=== PATIENT | female | born 1970 | race Two or more races ===

== ENCOUNTER 2024-01-08 05:21 | Day surgery (SDC) | payer OTHER ==
[~2024-01-08 05:21] MED LIST: ARNUITY ELLIPT50 MCG IH; SYMBICORT 16010.2 GM IH
[2024-01-08] MEDS ORDERED: CEFAZOLIN SODIUM 1,000 MG VIAL ONE (06:31)
[2024-01-08] MEDS ORDERED: LIDOCAINE HCL 1%/EPINEPHRINE 20ML VIAL IJ ONE (07:24)
[2024-01-08] MEDS ORDERED: HEPARIN SODIUM,PORCINE 500 UNITS/5 ML VIAL IV ONE (07:24)
[2024-01-08] MEDS ORDERED: BUPIVACAINE HCL 30 ML VIAL IJ SCH (08:00)
[2024-01-08] MEDS ORDERED: LIDOCAINE HCL 1%/EPINEPHRINE 20ML VIAL IJ SCH (08:00)
[2024-01-08] MEDS ORDERED: HEPARIN SODIUM,PORCINE 500 UNITS/5 ML VIAL IV SCH (08:00)
[2024-01-08] MEDS ORDERED: CEFAZOLIN SODIUM 1,000 MG VIAL IV SCH (08:00)
== END 2024-01-08 11:50 | disposition home or self-care (01) ==
LOC: CIR.AMB 05:21
PROVIDERS: ATTEND Colon & Rectal Surgery
DX: C18.0 Malignant neoplasm of cecum (principal)

== ENCOUNTER 2025-03-09 12:00 | Inpatient (IN) | payer OTHER ==
[~2025-03-09] VITALS: Ht 61 cm; Wt 61.7 kg
[2025-03-17] MEDS ORDERED: CEFTRIAXONE SODIUM 2,000 MG VIAL ONE (09:40)
[2025-03-17] MEDS ORDERED: METRONIDAZOLE/SODIUM CHLORIDE 500 MG/100 ML PIGGYBACK IV ONE ×2 (09:41→11:45)
[2025-03-17] MEDS ORDERED: CEFTRIAXONE SODIUM 2,000 MG VIAL IV ONE (11:45)
[2025-03-17] MEDS ORDERED: OxyCODONE HCL 5 MG TABLET (ROXICODONE) PO PRN (14:30)
[2025-03-17] MEDS ORDERED: RINGERS SOLUTION,LACTATED 1,000 ML IV SCH (14:30)
[2025-03-17] MEDS ORDERED: MORPHINE SULFATE 4 MG/ML CARTRIDGE IV PRN (14:30)
[2025-03-17] MEDS ORDERED: ONDANSETRON HCL 2 MG/ML VIAL IV PRN (14:30)
[2025-03-17] MEDS ORDERED: GABAPENTIN 300 MG CAPSULE PO SCH (17:00)
[2025-03-17] MEDS ORDERED: SIMETHICONE 125 MG CAPSULE PO SCH (17:00)
[2025-03-17] MEDS ORDERED: CELECOXIB 200 MG CAPSULE PO SCH (17:00)
[2025-03-17] MEDS ORDERED: POLYETHYLENE GLYCOL 3350 17 GM BLIST.PACK PO SCH (17:00)
[2025-03-17] MEDS ORDERED: METOCLOPRAMIDE HCL 5 MG/ML VIAL IV SCH (17:00)
[2025-03-17] MEDS ORDERED: HYOSCYAMINE SULFATE 0.125 MG TAB.SUBL SL SCH (17:00)
[2025-03-17 17:08] LABS: BASO % 0.1 % (0.1-1.2); EOS # 0.08 (0.04-0.54); EOS % 1.1 % (0.7-7.0); LYMPH # 0.58 (1.18-3.74); MEAN CORPUSCULAR HEMOGLOBIN 29.3 pg (25.6-32.2); MONO # 0.17 (0.24-0.82); MONO % 2.4 % (4.7-12.5); NEUT # 6.35 (1.56-6.13); RED BLOOD COUNT 3.24 M/uL (3.93-5.22); RED CELL DISTRIBUTION WIDTH 14.6 % (11.6-14.4)
[2025-03-17 17:09] LABS: HEMOGLOBIN 9.5 g/dL (11.2-15.7); PLATELET COUNT 92 K/uL (163-369)
[2025-03-17 17:32] LABS: ALBUMIN 2.4 gm/dL (3.4-5.0); BILIRUBIN TOTAL 1.17 mg/dL (0.3-1.2); CALCIUM 7.3 mg/dL (8.5-10.1); CREATININE SERUM 0.84 mg/dL (0.55-1.02); GFR 70.92; GLOBULINA 2.4 G/DL (2.4-3.5); MAGNESIUM 1.5 mg/dL (1.8-2.4); PHOSPHOROUS 3.5 mg/dL (2.5-4.9); POTASSIUM 3.99 mEq/L (3.5-5.1); TOTAL PROTEIN 4.8 gm/dL (6.4-8.2)
[2025-03-17 17:49] LABS: ABG PO2 193.9 mmHg (80-100); ABG pCO2 35.1 mmHg (35-45); BASE EXCESS -5.2 mmol/l; BICARBONATE 19.4 mmol/l (23-25); SaO2 99.6 %; Tco2 20.5 mmol/l
[2025-03-17 17:51] LABS: allen test SATISFACTORY; o2 40 %; puncture site RADIAL RIGHT
[2025-03-17 17:52] LABS: mode NASAL CANNULA
[2025-03-17] MEDS ORDERED: ALBUTEROL SULFATE 3 ML/2.5 MG AMPUL.NEB IH SCH (18:00)
[2025-03-17] MEDS ORDERED: METOCLOPRAMIDE HCL 5 MG/ML VIAL ONE (19:34)
[2025-03-17] MEDS ORDERED: ACETAMINOPHEN 500 MG GEL..CAP PO SCH (20:00)
[2025-03-17] MEDS ORDERED: AMINOCAPROIC ACID 250 MG/ML VIAL IV STA (20:03)
[2025-03-17 20:21] LABS: BASO % 0.1 % (0.1-1.2); EOS # 0.08 (0.04-0.54); EOS % 0.8 % (0.7-7.0); LYMPH # 0.78 (1.18-3.74); LYMPH % 7.4 % (19.3-53.1); MEAN CORPUSCULAR HEMOGLOBIN 29.6 pg (25.6-32.2); MONO # 0.74 (0.24-0.82); NEUT # 8.84 (1.56-6.13); NEUT % 84.1 % (34.0-71.1); RED CELL DISTRIBUTION WIDTH 14.6 % (11.6-14.4)
[2025-03-17 20:43] LABS: HEMOGLOBIN 7.4 g/dL (11.2-15.7); PLATELET COUNT 107 K/uL (163-369)
[2025-03-17] MEDS ORDERED: LEVALBUTEROL HCL 0.63 MG/3 ML SOLUTION IH SCH (20:56)
[2025-03-17] MEDS ORDERED: 0.9 % SODIUM CHLORIDE 1,000 ML IV SCH (21:00)
[2025-03-17] MEDS ORDERED: FAMOTIDINE/PF 20 MG/2 ML VIAL IV PUSH SCH (21:00)
[2025-03-17] MEDS ORDERED: AMINOCAPROIC ACID 250 MG/ML VIAL IV SCH (22:00)
[2025-03-18] MEDS ORDERED: GABAPENTIN 300 MG CAPSULE PO ONE (01:16)
[2025-03-18] MEDS ORDERED: ACETAMINOPHEN 500 MG GEL..CAP PO ONE (01:16)
[2025-03-18] MEDS ORDERED: METOCLOPRAMIDE HCL 5 MG/ML VIAL ONE (01:16)
[2025-03-18] MEDS ORDERED: PANTOPRAZOLE SODIUM 40 MG/VIAL VIAL IV SCH (06:00)
[2025-03-18] MEDS ORDERED: LACTOBACILLUS ACIDOPHILUS 1 CAP CAP PO SCH (09:00)
[2025-03-18] MEDS ORDERED: LACTULOSE 20 G/30 ML BLIST.PACK PO SCH (09:00)
[2025-03-18] MEDS ORDERED: AMINOCAPROIC ACID 250 MG/ML VIAL IV ONE ×2 (09:07→14:41)
[2025-03-18 10:38] LABS: BASO % 0.2 % (0.1-1.2); HEMATOCRIT 28.2 % (34.1-44.9); LYMPH # 1.39 (1.18-3.74); LYMPH % 15.3 % (19.3-53.1); MEAN CORPUSCULAR HEMOGLOBIN 29.8 pg (25.6-32.2); MONO % 8.8 % (4.7-12.5); NEUT # 6.87 (1.56-6.13); NEUT % 75.5 % (34.0-71.1); RED BLOOD COUNT 3.32 M/uL (3.93-5.22); RED CELL DISTRIBUTION WIDTH 14.7 % (11.6-14.4)
[2025-03-18 11:06] LABS: HEMOGLOBIN 9.9 g/dL (11.2-15.7); PLATELET COUNT 64 K/uL (163-369)
[2025-03-18 11:36] LABS: ALBUMIN 2.2 gm/dL (3.4-5.0); CALCIUM 6.7 mg/dL (8.5-10.1); CREATININE SERUM 0.68 mg/dL (0.55-1.02); GFR 90.51; PHOSPHOROUS 2.6 mg/dL (2.5-4.9); POTASSIUM 4.11 mEq/L (3.5-5.1)
[2025-03-18 11:37] LABS: MAGNESIUM 1.4 mg/dL (1.8-2.4)
[2025-03-18] MEDS ORDERED: MAGNESIUM SULFATE IN WATER 50 ML IV NR (12:45)
[2025-03-18 16:54] VITALS: BP 117/73; O2SAT 94
[2025-03-18] MEDS ORDERED: Cyanocobalamin/Mecobalamin 1 TAB.SL SL SCH (17:00)
[2025-03-18] MEDS ORDERED: ENOXAPARIN SODIUM 40 MG/0.4 ML SYRINGE SUBCUTANEO SCH (17:00)
[2025-03-18] MEDS ORDERED: SOD FERRIC GLUC COMPLX/SUCROSE 62.5 MG in 0.9 % SODIUM CHLORIDE 50 ML IV SCH (17:00)
[2025-03-19] VITALS: BP 112/69; O2SAT 97
[2025-03-19 07:54] LABS: BASO % 0.2 % (0.1-1.2); EOS # 0.15 (0.04-0.54); EOS % 1.8 % (0.7-7.0); HEMATOCRIT 33.1 % (34.1-44.9); HEMOGLOBIN 11.2 g/dL (11.2-15.7); LYMPH # 1.53 (1.18-3.74); LYMPH % 18.4 % (19.3-53.1); MEAN CORPUSCULAR HEMOGLOBIN 27.9 pg (25.6-32.2); MONO # 0.74 (0.24-0.82); MONO % 8.9 % (4.7-12.5); NEUT # 5.83 (1.56-6.13); NEUT % 70.3 % (34.0-71.1); RED BLOOD COUNT 4.01 M/uL (3.93-5.22); RED CELL DISTRIBUTION WIDTH 16.1 % (11.6-14.4)
[2025-03-19 08:10] LABS: PLATELET COUNT 63 K/uL (163-369)
[2025-03-19 08:31] LABS: CALCIUM 7.5 mg/dL (8.5-10.1); CREATININE SERUM 0.54 mg/dL (0.55-1.02); GFR 118.09; MAGNESIUM 1.7 mg/dL (1.8-2.4); POTASSIUM 3.68 mEq/L (3.5-5.1)
[2025-03-19 08:49] LABS: PHOSPHOROUS 1.4 mg/dL (2.5-4.9)
[2025-03-19] MEDS ORDERED: ENOXAPARIN SODIUM 40 MG/0.4 ML SYRINGE SUBCUTANEO SCH (09:00)
[2025-03-19 09:25] VITALS: BP 126/81; O2SAT 94
[2025-03-19] MEDS ORDERED: MAGNESIUM SULFATE IN WATER 50 ML IV NR (11:30)
[2025-03-19] MEDS ORDERED: POTASSIUM PHOS,M-BASIC-D-BASIC 15 MM in 0.9 % SODIUM CHLORIDE 250 ML IV NR (13:00)
[2025-03-19] MEDS ORDERED: FUROsemide 20 MG/2 ML VIAL IV SCH (13:00)
[2025-03-19 16:00] VITALS: BP 143/88; O2SAT 97
[2025-03-20 04:01] VITALS: BP 122/77; O2SAT 100
[2025-03-20 08:04] LABS: BASO % 0.1 % (0.1-1.2); EOS # 0.42 (0.04-0.54); EOS % 5.4 % (0.7-7.0); HEMATOCRIT 34.1 % (34.1-44.9); HEMOGLOBIN 11.7 g/dL (11.2-15.7); LYMPH % 21.8 % (19.3-53.1); MEAN CORPUSCULAR HEMOGLOBIN 27.8 pg (25.6-32.2); MONO # 0.67 (0.24-0.82); MONO % 8.6 % (4.7-12.5); NEUT # 4.97 (1.56-6.13); NEUT % 63.8 % (34.0-71.1); RED BLOOD COUNT 4.21 M/uL (3.93-5.22); RED CELL DISTRIBUTION WIDTH 15.9 % (11.6-14.4)
[2025-03-20 08:07] LABS: CREATININE SERUM 0.58 mg/dL (0.55-1.02); GFR 108.75; MAGNESIUM 1.8 mg/dL (1.8-2.4); PHOSPHOROUS 2.2 mg/dL (2.5-4.9); POTASSIUM 3.3 mEq/L (3.5-5.1)
[2025-03-20 08:15] LABS: PLATELET COUNT 104 K/uL (163-369)
[2025-03-20 08:18] VITALS: BP 127/78; O2SAT 95
[2025-03-20 08:59] LABS: MANUAL PLATELET COUNT 122
[2025-03-20] MEDS ORDERED: POTASSIUM PHOS,M-BASIC-D-BASIC 15 MM in 0.9 % SODIUM CHLORIDE 250 ML IV NR (10:00)
[2025-03-20] MEDS ORDERED: INTESTINEX680 M1 PO (15:43)
[2025-03-20] MEDS ORDERED: LEVSIN/SL0.125 MG SL (15:44)
[2025-03-20 16:52] VITALS: BP 129/77; O2SAT 100
== END 2025-03-20 20:00 | disposition home or self-care (01) | DRG 331 ==
LOC: O/R 03-17 06:45 → SURH 03-17 07:00 → SURG 03-17 17:56
PROVIDERS: Internal Medicine Geriatric Medicine; ADMIT Colon & Rectal Surgery; ATTEND Colon & Rectal Surgery
PROC: 07BC4ZX Excision of Pelvis Lymphatic, Percutaneous Endoscopic Approach, Diagnostic (ICD-10-PCS; 2025-03-17)
PROC: 0DTF4ZZ Resection of Right Large Intestine, Percutaneous Endoscopic Approach (ICD-10-PCS; principal; 2025-03-17 07:00)
DX: C18.0 Malignant neoplasm of cecum (principal)

== ENCOUNTER 2025-04-28 11:45 | Inpatient (IN) | payer OTHER ==
[~2025-04-28] VITALS: Ht 157.5 cm; Wt 0.5 kg
[~2025-04-28 11:45] MED LIST changes: +INTESTINEX680 M1 PO; +LEVSIN/SL0.125 MG SL
--- NOTE | 2025-04-28 12:10 | NUR ---
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 ACEPTADA POR . SE CELIA SV Y SE UBICA
[2025-04-28] MEDS ORDERED: PIPERACILLIN/TAZOBACTAM SODIUM 3.375 GM VIAL IV ONE (12:30)
[2025-04-28] MEDS ORDERED: 0.9 % SODIUM CHLORIDE 1,000 ML IV ONE (12:30)
[2025-04-28] MEDS ORDERED: FAMOtidine 10 MG/ML (4ML VIAL) IV ONE (12:30)
[2025-04-28 14:10] LABS: BASO % 0.5 % (0.1-1.2); EOS # 0.00 (0.04-0.54); EOS % 0.0 % (0.7-7.0); LYMPH # 0.42 (1.18-3.74); LYMPH % 4.3 % (19.3-53.1); MEAN PLATELET VOLUME 9.90 fl (9.4-12.4); MONO # 0.48 (0.24-0.82); MONO % 4.9 % (4.7-12.5); NEUT # 8.87 (1.56-6.13); NEUT % 89.9 % (34.0-71.1); RED CELL DISTRIBUTION WIDTH 15.1 % (11.6-14.4)
[2025-04-28 14:27] LABS: INR 1.17
[2025-04-28 14:35] LABS: ALT/SGPT 29.0 U/L (12-78); AST/SGOT 27.0 U/L (15-37); BILIRUBIN TOTAL 0.96 mg/dL (0.3-1.2); BUN CREA RATIO 24.0 (7.0-25.0); CREATININE SERUM 1.99 mg/dL (0.55-1.02); GFR 26.11; GLOBULINA 5.7 G/DL (2.4-3.5); GLUCOSE FASTING 108.0 mg/dL (65-100); OSMOLALITY SERUM 283.0 MOSM/KG (275-295)
--- NOTE | 2025-04-28 14:36 | NUR ---
LIZZETTE SANTANA EDUCA ACERCA DE TX ORDENADO Y REFIERE ENTENDER. SE COLECTAN MUESTRAS DE LABORATORIO MEDIANTE MEDIDAS ASEPTICAS. SE ADMINISTRAN MEDICAMENTOS MIGUEL ORDEN MEDICA
[2025-04-28] MEDS ORDERED: DEXTROSE 5 % AND 0.9 % NACL 1,000 ML IV SCH (14:45)
[2025-04-28] MEDS ORDERED: DIPHENHYDRAMINE HCL 50 MG/ML VIAL 1ML IV ONE (15:00)
[2025-04-28 16:17] LABS: URINE APPEARANCE Clear; URINE BILIRRUBIN Negative (NEGATIVE); URINE BLOOD Negative; URINE COLOR Yellow; URINE GLUCOSE Negative (NEGATIVE); URINE KETONE Negative (NEGATIVE); URINE LEUKOCYTE Negative; URINE NITRATE Negative; URINE PROTEIN 30 (NEGATIVE); URINE UROBILINOGEN 0.2 E.U./dl
[2025-04-28 16:20] LABS: URINE BACTERIA 11.9 uL (0.0-1933); URINE EPITHELIAL CELLS 11.9 uL (0.0-38.8); URINE RBC 2.6 uL (0.0-20.8); URINE WBC 5.0 uL (0.0-23.2)
[2025-04-28 16:35] LABS: URINE CAST 1.17 uL (0.0-1.40)
[2025-04-28 16:40] LABS: BAND MAN 22.0 %; LYMPHOCYTE MAN 1.0 %; MONOCYTE MAN 5.0 %; MYELOCYTE 6.0 %; NEUTROPHILS MAN 66.0 %
[2025-04-28 16:54] VITALS: BP 112/78; O2SAT 97
[2025-04-28] MEDS ORDERED: ENOXAPARIN SODIUM 30 MG/0.3 ML SYRINGE SUBCUTANEO SCH (17:00)
[2025-04-28] MEDS ORDERED: ENOXAPARIN SODIUM 40 MG/0.4 ML SYRINGE SUBCUTANEO SCH (17:00)
[2025-04-28] MEDS ORDERED: PIPERACILLIN/TAZOBACTAM SODIUM 2.25 GM in 0.9 % SODIUM CHLORIDE 50 ML IV SCH (18:00)
[2025-04-28] MEDS ORDERED: FAMOTIDINE/PF 20 MG/2 ML VIAL IV SCH (21:00)
[2025-04-28 23:33] LABS: COVID-19 AG NEGATIVE (NEGATIVE)
[2025-04-29 02:59] LABS: BASO % 0.9 % (0.1-1.2); EOS # 0.02 (0.04-0.54); EOS % 0.2 % (0.7-7.0); LYMPH # 0.57 (1.18-3.74); LYMPH % 7.1 % (19.3-53.1); MEAN PLATELET VOLUME 9.80 fl (9.4-12.4); MONO # 0.67 (0.24-0.82); MONO % 8.3 % (4.7-12.5); NEUT # 6.65 (1.56-6.13); NEUT % 82.5 % (34.0-71.1); RED CELL DISTRIBUTION WIDTH 14.8 % (11.6-14.4)
[2025-04-29 03:20] VITALS: BP 132/78; O2SAT 98
[2025-04-29 03:23] LABS: ALT/SGPT 24.0 U/L (12-78); AST/SGOT 26.0 U/L (15-37); BILIRUBIN TOTAL 0.84 mg/dL (0.3-1.2); BUN CREA RATIO 37.0 (7.0-25.0); CREATININE SERUM 1.26 mg/dL (0.55-1.02); GFR 44.25; GLOBULINA 4.3 G/DL (2.4-3.5); GLUCOSE FASTING 102.0 mg/dL (65-100); OSMOLALITY SERUM 295.0 MOSM/KG (275-295)
[2025-04-29 05:48] VITALS: BP 119/76; O2SAT 95
[2025-04-29 06:23] VITALS: BP 115/75; O2SAT 95
[2025-04-29] MEDS ORDERED: SOD FERRIC GLUC COMPLX/SUCROSE 62.5 MG in 0.9 % SODIUM CHLORIDE 50 ML IV SCH (09:00)
[2025-04-29] MEDS ORDERED: Cyanocobalamin/Mecobalamin 1 TAB.SL SL SCH (09:00)
[2025-04-29 09:09] VITALS: BP 113/73; O2SAT 95
[2025-04-29 16:30] VITALS: BP 125/80; O2SAT 94
[2025-04-29] MEDS ORDERED: MEROPENEM 500 MG/VIAL VIAL IV SCH (17:00)
[2025-04-29] MEDS ORDERED: VANCOMYCIN HCL 1,000 MG VIAL IV SCH (18:00)
[2025-04-29] MEDS ORDERED: MORPHINE SULFATE 4 MG/ML VIAL IV PRN (19:15)
[2025-04-30 01:37] VITALS: BP 134/81; O2SAT 97
[2025-04-30] MEDS ORDERED: FAMOTIDINE/PF 20 MG/2 ML VIAL IV SCH (09:00)
[2025-04-30 13:19] LABS: BASO % 0.1 % (0.1-1.2); EOS # 0.00 (0.04-0.54); EOS % 0.0 % (0.7-7.0); LYMPH # 1.47 (1.18-3.74); LYMPH % 13.1 % (19.3-53.1); MEAN PLATELET VOLUME 9.70 fl (9.4-12.4); MONO # 1.06 (0.24-0.82); MONO % 9.4 % (4.7-12.5); NEUT # 8.08 (1.56-6.13); NEUT % 72.0 % (34.0-71.1); RED CELL DISTRIBUTION WIDTH 15.0 % (11.6-14.4)
[2025-04-30 14:24] LABS: BUN CREA RATIO 41.0 (7.0-25.0); CREATININE SERUM 0.68 mg/dL (0.55-1.02); GFR 90.17; GLUCOSE FASTING 121.0 mg/dL (65-100); OSMOLALITY SERUM 303.0 MOSM/KG (275-295)
[2025-04-30] MEDS ORDERED: DEXTROSE 5 % IN WATER 1,000 ML IV SCH (16:00)
[2025-04-30] MEDS ORDERED: AA 4.25%/CAL/LYTES/DEXT 5% 1,000 ML PERIFERAL SCH (17:00)
[2025-04-30] MEDS ORDERED: AA 2.36%/D6.8W/FAT/E-LYTES NO9 1,440 ML IV SCH (17:00)
[2025-04-30 17:28] VITALS: BP 143/72; O2SAT 95
[2025-04-30] MEDS ORDERED: VANCOMYCIN HCL 1,000 MG VIAL IV SCH (18:00)
[2025-04-30] MEDS ORDERED: MEROPENEM 500 MG/VIAL VIAL IV SCH (18:11)
[2025-04-30] MEDS ORDERED: OCTREOTIDE ACETATE 100MCG/ML (0.1MG/ML) AMPUL IV SCH (19:30)
[2025-04-30] MEDS ORDERED: ANIDULAFUNGIN 100 MG VIAL IV NR (21:00)
[2025-04-30] MEDS ORDERED: MIDAZOLAM HCL 2 MG/2 ML VIAL IV PUSH ONE (22:00)
[2025-04-30] MEDS ORDERED: fentaNYL CITRATE 50 MCG/ML AMPUL IV PUSH ONE (22:00)
[2025-05-01] MEDS ORDERED: MEROPENEM 500 MG/VIAL VIAL IV SCH
[2025-05-01 01:23] VITALS: BP 134/81; O2SAT 98
[2025-05-01 08:16] LABS: BUN CREA RATIO 41.0 (7.0-25.0); CREATININE SERUM 0.41 mg/dL (0.55-1.02); GFR 161.66; GLUCOSE FASTING 103.0 mg/dL (65-100)
[2025-05-01 08:18] LABS: BASO % 0.7 % (0.1-1.2); EOS # 0.07 (0.04-0.54); EOS % 0.5 % (0.7-7.0); LYMPH # 1.79 (1.18-3.74); LYMPH % 13.7 % (19.3-53.1); MEAN PLATELET VOLUME 10.50 fl (9.4-12.4); MONO # 1.08 (0.24-0.82); MONO % 8.3 % (4.7-12.5); NEUT # 8.07 (1.56-6.13); NEUT % 61.8 % (34.0-71.1); RED CELL DISTRIBUTION WIDTH 15.1 % (11.6-14.4)
[2025-05-01 08:53] LABS: OSMOLALITY SERUM 304.0 MOSM/KG (275-295)
[2025-05-01 08:56] VITALS: BP 152/66; O2SAT 96
[2025-05-01] MEDS ORDERED: ENOXAPARIN SODIUM 40 MG/0.4 ML SYRINGE SUBCUTANEO SCH (09:00)
[2025-05-01] MEDS ORDERED: OCTREOTIDE ACETATE IV SCH (09:45)
[2025-05-01] MEDS ORDERED: SODIUM CHLORIDE 0.9% IV SCH (09:45)
[2025-05-01] MEDS ORDERED: POTASSIUM CHLORIDE IN WATER 40 MEQ/100 ML PIGGYBAG IV SCH (12:00)
[2025-05-01 16:00] VITALS: BP 155/78; O2SAT 94
[2025-05-01] MEDS ORDERED: ANIDULAFUNGIN 100 MG VIAL IV SCH (21:00)
[2025-05-01] MEDS ORDERED: POTASSIUM CHLORIDE IN WATER 40 MEQ/100 ML PIGGYBAG IV ONE (22:00)
[2025-05-02] MEDS ORDERED: POTASSIUM PHOS,M-BASIC-D-BASIC 15 MM in 0.9 % SODIUM CHLORIDE 250 ML IV ONE
[2025-05-02 00:30] VITALS: BP 137/84; O2SAT 96
[2025-05-02 07:34] LABS: BASO % 0.2 % (0.1-1.2); EOS # 0.46 (0.04-0.54); EOS % 3.2 % (0.7-7.0); LYMPH # 2.67 (1.18-3.74); LYMPH % 18.6 % (19.3-53.1); MEAN PLATELET VOLUME 10.10 fl (9.4-12.4); MONO # 1.22 (0.24-0.82); MONO % 8.5 % (4.7-12.5); NEUT # 8.47 (1.56-6.13); NEUT % 59.1 % (34.0-71.1); RED CELL DISTRIBUTION WIDTH 15.5 % (11.6-14.4)
[2025-05-02 07:41] LABS: ALT/SGPT 32.0 U/L (12-78); AST/SGOT 61.0 U/L (15-37); BILIRUBIN TOTAL 0.96 mg/dL (0.3-1.2); BUN CREA RATIO 21.0 (7.0-25.0); CREATININE SERUM 0.57 mg/dL (0.55-1.02); GFR 110.53; GLOBULINA 3.9 G/DL (2.4-3.5); GLUCOSE FASTING 155.0 mg/dL (65-100); OSMOLALITY SERUM 293.0 MOSM/KG (275-295)
[2025-05-02 08:16] LABS: BAND MAN 5.0 %; EOSINOPHIL MAN 6.0 %; LYMPHOCYTE MAN 12.0 %; METAMYELOCYTE 2.0 %; MONOCYTE MAN 6.0 %; MYELOCYTE 2.0 %; NEUTROPHILS MAN 53.0 %
[2025-05-02 09:00] VITALS: BP 149/88; O2SAT 97
[2025-05-02] MEDS ORDERED: OCTREOTIDE ACETATE IV SCH (13:00)
[2025-05-02] MEDS ORDERED: SODIUM CHLORIDE 0.9% IV SCH (13:00)
[2025-05-02 16:15] VITALS: BP 158/91; O2SAT 97
[2025-05-03 01:06] VITALS: BP 145/90; O2SAT 95
[2025-05-03 06:46] LABS: BASO % 0.6 % (0.1-1.2); EOS # 0.63 (0.04-0.54); EOS % 4.1 % (0.7-7.0); LYMPH # 2.60 (1.18-3.74); LYMPH % 16.8 % (19.3-53.1); MEAN PLATELET VOLUME 10.90 fl (9.4-12.4); MONO # 1.35 (0.24-0.82); MONO % 8.7 % (4.7-12.5); NEUT # 9.57 (1.56-6.13); NEUT % 61.9 % (34.0-71.1); RED CELL DISTRIBUTION WIDTH 15.6 % (11.6-14.4)
[2025-05-03 07:26] LABS: INR 1.12
[2025-05-03 07:34] LABS: ALT/SGPT 34.0 U/L (12-78); AST/SGOT 53.0 U/L (15-37); BILIRUBIN TOTAL 1.26 mg/dL (0.3-1.2); BILIRUBIN,CONJUGATED 0.56 mg/dL (0.0-0.2); BUN CREA RATIO 22.0 (7.0-25.0); CHOL HDL RATIO 6.8 (0-5.0); CREATININE SERUM 0.37 mg/dL (0.55-1.02); GFR 182.0; GLOBULINA 4.1 G/DL (2.4-3.5); GLUCOSE FASTING 131.0 mg/dL (65-100); OSMOLALITY SERUM 274.0 MOSM/KG (275-295)
[2025-05-03 07:41] LABS: HDL 11.0 mg/dl (40-60); LDL 15.0 mg/dl (0-130); VLDL 48.0 (0-39)
[2025-05-03 08:00] VITALS: BP 145/93; O2SAT 96
[2025-05-03 08:03] LABS: BAND MAN 23.0 %; LYMPHOCYTE MAN 25.0 %; METAMYELOCYTE 1.0 %; MONOCYTE MAN 13.0 %; NEUTROPHILS MAN 35.0 %
[2025-05-03 09:30] LABS: UREA CLEARANCE 63.9 ML/MIN
[2025-05-03] MEDS ORDERED: MAGNESIUM SULFATE IN WATER 50 ML IV NR (10:05)
[2025-05-03] MEDS ORDERED: FLUCONAZOLE IN NACL,ISO-OSM 400 MG/200 ML PIGGYBAG IV NR (12:00)
[2025-05-03 16:00] VITALS: BP 139/89; O2SAT 95
[2025-05-03] MEDS ORDERED: AMPICILLIN SODIUM/SULBACTAM NA 3,000 MG VIAL IV SCH (18:00)
[2025-05-04 01:06] VITALS: BP 131/81; O2SAT 95
[2025-05-04 07:52] LABS: BASO % 0.4 % (0.1-1.2); EOS # 0.42 (0.04-0.54); EOS % 3.0 % (0.7-7.0); LYMPH # 2.02 (1.18-3.74); LYMPH % 14.6 % (19.3-53.1); MEAN PLATELET VOLUME 11.30 fl (9.4-12.4); MONO # 1.44 (0.24-0.82); MONO % 10.4 % (4.7-12.5); NEUT # 9.03 (1.56-6.13); NEUT % 65.2 % (34.0-71.1); RED CELL DISTRIBUTION WIDTH 15.6 % (11.6-14.4)
[2025-05-04 08:38] LABS: BAND MAN 22.0 %; LYMPHOCYTE MAN 10.0 %; NEUTROPHILS MAN 50.0 %
[2025-05-04 08:39] LABS: EOSINOPHIL MAN 3.0 %; METAMYELOCYTE 5.0 %; MONOCYTE MAN 8.0 %
[2025-05-04 08:56] LABS: ALT/SGPT 28.0 U/L (12-78); AST/SGOT 39.0 U/L (15-37); BILIRUBIN TOTAL 0.99 mg/dL (0.3-1.2); BILIRUBIN,CONJUGATED 0.43 mg/dL (0.0-0.2); BUN CREA RATIO 17.0 (7.0-25.0); CREATININE SERUM 0.36 mg/dL (0.55-1.02); GFR 187.84; GLUCOSE FASTING 139.0 mg/dL (65-100); OSMOLALITY SERUM 274.0 MOSM/KG (275-295)
[2025-05-04] MEDS ORDERED: FLUCONAZOLE IN NACL,ISO-OSM 200 MG/100 ML PIGGYBAG IV SCH (09:00)
[2025-05-04 09:55] VITALS: BP 133/84; O2SAT 96
[2025-05-04] MEDS ORDERED: POTASSIUM PHOS,M-BASIC-D-BASIC 3 MM/ML VIAL IV NR (10:00)
[2025-05-04] MEDS ORDERED: OCTREOTIDE ACETATE IV SCH (13:00)
[2025-05-04] MEDS ORDERED: SODIUM CHLORIDE 0.9% IV SCH (13:00)
[2025-05-04] MEDS ORDERED: ANIDULAFUNGIN 100 MG VIAL IV NR (16:00)
[2025-05-04 16:31] VITALS: BP 138/83; O2SAT 95
[2025-05-04] MEDS ORDERED: AMINO ACIDS/PROTEIN HYDROLYS 30 ML BLIST.PACK PO SCH (17:00)
[2025-05-05 01:35] VITALS: BP 137/69; O2SAT 98
[2025-05-05] MEDS ORDERED: DIATRIZOATE MEGLUMINE, SODIUM 30 ML BOTTLE PO ONE (06:00)
[2025-05-05 08:00] VITALS: BP 146/84; O2SAT 95
[2025-05-05] MEDS ORDERED: ANIDULAFUNGIN 100 MG VIAL IV SCH (17:00)
[2025-05-05 17:35] VITALS: BP 148/83; O2SAT 99
[2025-05-05] MEDS ORDERED: MIDAZOLAM HCL 2 MG/2 ML VIAL IV PUSH ONE (18:30)
[2025-05-05] MEDS ORDERED: fentaNYL CITRATE 50 MCG/ML AMPUL IV PUSH ONE (18:30)
[2025-05-06 00:43] VITALS: BP 94/67; O2SAT 100
[2025-05-06 08:00] VITALS: BP 155/80; O2SAT 98
[2025-05-06 12:00] LABS: BASO % 0.4 % (0.1-1.2); EOS # 0.27 (0.04-0.54); EOS % 2.0 % (0.7-7.0); LYMPH # 1.88 (1.18-3.74); LYMPH % 13.9 % (19.3-53.1); MEAN PLATELET VOLUME 11.90 fl (9.4-12.4); MONO # 1.44 (0.24-0.82); MONO % 10.7 % (4.7-12.5); NEUT # 9.53 (1.56-6.13); NEUT % 70.8 % (34.0-71.1); RED CELL DISTRIBUTION WIDTH 16.3 % (11.6-14.4)
[2025-05-06 12:36] LABS: ALT/SGPT 15.0 U/L (12-78); AST/SGOT 25.0 U/L (15-37); BILIRUBIN TOTAL 0.77 mg/dL (0.3-1.2); BUN CREA RATIO 17.0 (7.0-25.0); CREATININE SERUM 0.36 mg/dL (0.55-1.02); GFR 187.84; GLOBULINA 4.6 G/DL (2.4-3.5); GLUCOSE FASTING 123.0 mg/dL (65-100); OSMOLALITY SERUM 277.0 MOSM/KG (275-295)
[2025-05-06 16:49] VITALS: BP 144/85; O2SAT 100
[2025-05-06] MEDS ORDERED: MORPHINE SULFATE 4 MG/ML VIAL IV PRN (19:30)
[2025-05-07] VITALS: BP 125/74; O2SAT 100
[2025-05-07 08:30] VITALS: BP 125/78
[2025-05-07] MEDS ORDERED: MORPHINE SULFATE 4 MG/ML CARTRIDGE IV PRN (09:15)
[2025-05-07] MEDS ORDERED: ORPHENADRINE CITRATE 30 MG/ML AMPUL IM SCH (12:05)
[2025-05-07 16:00] VITALS: BP 118/80; O2SAT 100
[2025-05-08 00:22] VITALS: BP 100/65; O2SAT 100
[2025-05-08 07:42] LABS: BASO % 0.3 % (0.1-1.2); EOS # 0.18 (0.04-0.54); EOS % 1.7 % (0.7-7.0); LYMPH # 1.70 (1.18-3.74); LYMPH % 16.5 % (19.3-53.1); MEAN PLATELET VOLUME 11.40 fl (9.4-12.4); MONO # 1.14 (0.24-0.82); MONO % 11.1 % (4.7-12.5); NEUT # 7.10 (1.56-6.13); NEUT % 68.8 % (34.0-71.1); RED CELL DISTRIBUTION WIDTH 16.9 % (11.6-14.4)
[2025-05-08 08:05] LABS: BUN CREA RATIO 27.0 (7.0-25.0); CREATININE SERUM 0.37 mg/dL (0.55-1.02); GFR 182.0; GLUCOSE FASTING 128.0 mg/dL (65-100); OSMOLALITY SERUM 282.0 MOSM/KG (275-295)
[2025-05-08 09:56] VITALS: BP 130/84; O2SAT 100
[2025-05-08] MEDS ORDERED: CYCLOBENZAPRINE HCL 5 MG TABLET PO SCH (13:57)
[2025-05-08 16:00] VITALS: BP 153/85; O2SAT 100
[2025-05-09 01:33] VITALS: BP 132/76; O2SAT 100
[2025-05-09 08:46] VITALS: BP 169/96; O2SAT 98
[2025-05-09] MEDS ORDERED: FAMOTIDINE/PF 20 MG/10 ML SYRINGE IV SCH (09:00)
[2025-05-09] MEDS ORDERED: SOD FERRIC GLUC COMPLX/SUCROSE 62.5 MG in 0.9 % SODIUM CHLORIDE 50 ML IV SCH (13:11)
[2025-05-09] MEDS ORDERED: Cyanocobalamin/Mecobalamin 1 TAB.SL SL SCH (13:11)
[2025-05-09] MEDS ORDERED: MULTIVIT INFUSN,ADULT 4,VIT K 10 ML VIAL IV SCH (13:11)
[2025-05-09] MEDS ORDERED: SODIUM CL 0.9% 50 ML IV.SOLN IV ONE (13:48)
[2025-05-09 14:06] LABS: BASO % 0.5 % (0.1-1.2); EOS # 0.18 (0.04-0.54); EOS % 1.4 % (0.7-7.0); LYMPH # 1.46 (1.18-3.74); LYMPH % 11.6 % (19.3-53.1); MEAN PLATELET VOLUME 10.60 fl (9.4-12.4); MONO # 1.28 (0.24-0.82); MONO % 10.2 % (4.7-12.5); NEUT # 9.47 (1.56-6.13); NEUT % 75.2 % (34.0-71.1); RED CELL DISTRIBUTION WIDTH 16.7 % (11.6-14.4)
[2025-05-09 16:00] VITALS: BP 135/81; O2SAT 100
[2025-05-09] MEDS ORDERED: FAMOTIDINE/PF 20 MG/2 ML VIAL IV PUSH SCH (21:00)
[2025-05-10] VITALS: BP 145/86; O2SAT 97
[2025-05-10] MEDS ORDERED: MORPHINE SULFATE 4 MG/ML CARTRIDGE IV PRN (01:15)
[2025-05-10 06:50] LABS: BASO % 0.3 % (0.1-1.2); EOS # 0.19 (0.04-0.54); EOS % 2.0 % (0.7-7.0); LYMPH # 1.29 (1.18-3.74); LYMPH % 13.3 % (19.3-53.1); MEAN PLATELET VOLUME 10.50 fl (9.4-12.4); MONO # 1.25 (0.24-0.82); NEUT # 6.86 (1.56-6.13); NEUT % 71.0 % (34.0-71.1); RED CELL DISTRIBUTION WIDTH 16.3 % (11.6-14.4)
[2025-05-10 07:09] LABS: MONO % 12.9 % (4.7-12.5)
[2025-05-10 07:29] LABS: ALT/SGPT 9.0 U/L (12-78); AST/SGOT 22.0 U/L (15-37); BILIRUBIN TOTAL 0.83 mg/dL (0.3-1.2); BILIRUBIN,CONJUGATED 0.35 mg/dL (0.0-0.2); BUN CREA RATIO 18.0 (7.0-25.0); CHOL HDL RATIO 5.6 (0-5.0); CREATININE SERUM 0.38 mg/dL (0.55-1.02); GFR 176.48; GLOBULINA 4.7 G/DL (2.4-3.5); GLUCOSE FASTING 128.0 mg/dL (65-100); HDL 16.0 mg/dl (40-60); OSMOLALITY SERUM 281.0 MOSM/KG (275-295)
[2025-05-10 07:33] LABS: LDL 31.0 mg/dl (0-130); VLDL 42.0 (0-39)
[2025-05-10 08:00] VITALS: BP 160/90; O2SAT 100
[2025-05-10 12:38] LABS: INR 1.14
[2025-05-10 16:00] VITALS: BP 154/90; O2SAT 97
[2025-05-11 00:30] VITALS: BP 161/100; O2SAT 98
[2025-05-11] MEDS ORDERED: hydrALAZINE HCL 20 MG VIAL IV PRN (06:00)
[2025-05-11 08:00] VITALS: BP 136/86; O2SAT 98
[2025-05-11] MEDS ORDERED: CELECOXIB 200 MG CAPSULE PO STA (13:04)
[2025-05-11 16:00] VITALS: BP 116/91; O2SAT 96
[2025-05-11] MEDS ORDERED: CELECOXIB 200 MG CAPSULE PO SCH (21:00)
[2025-05-12 01:03] VITALS: BP 138/79; O2SAT 98
[2025-05-12 08:00] VITALS: BP 144/79; O2SAT 99
[2025-05-12] MEDS ORDERED: METHYLPREDNISOLONE SOD SUCC 40 MG VIAL IV NR (10:30)
[2025-05-12] MEDS ORDERED: DIPHENHYDRAMINE HCL 50 MG/ML VIAL 1ML IV NR (10:30)
[2025-05-12 13:44] LABS: BASO % 0.4 % (0.1-1.2); EOS # 0.17 (0.04-0.54); EOS % 1.5 % (0.7-7.0); LYMPH # 0.67 (1.18-3.74); LYMPH % 6.1 % (19.3-53.1); MEAN PLATELET VOLUME 10.60 fl (9.4-12.4); MONO # 0.75 (0.24-0.82); MONO % 6.8 % (4.7-12.5); NEUT # 9.35 (1.56-6.13); NEUT % 84.6 % (34.0-71.1); RED CELL DISTRIBUTION WIDTH 17.1 % (11.6-14.4)
[2025-05-12 14:11] LABS: BUN CREA RATIO 24.0 (7.0-25.0); CREATININE SERUM 0.42 mg/dL (0.55-1.02); GFR 157.23; GLUCOSE FASTING 114.0 mg/dL (65-100); OSMOLALITY SERUM 277.0 MOSM/KG (275-295)
[2025-05-12 16:00] VITALS: BP 153/90; O2SAT 96
[2025-05-13 01:55] VITALS: BP 143/75; O2SAT 98
[2025-05-13 08:00] VITALS: BP 155/87; O2SAT 99
[2025-05-13 16:00] VITALS: BP 150/89; O2SAT 97
[2025-05-14 02:21] VITALS: BP 140/83; O2SAT 96
[2025-05-14 08:00] VITALS: BP 109/73; O2SAT 96
[2025-05-14 09:19] LABS: BASO % 0.3 % (0.1-1.2); EOS # 0.15 (0.04-0.54); EOS % 1.3 % (0.7-7.0); LYMPH # 1.54 (1.18-3.74); LYMPH % 13.2 % (19.3-53.1); MEAN PLATELET VOLUME 10.60 fl (9.4-12.4); MONO # 1.15 (0.24-0.82); MONO % 9.8 % (4.7-12.5); NEUT # 8.75 (1.56-6.13); NEUT % 74.7 % (34.0-71.1); RED CELL DISTRIBUTION WIDTH 17.3 % (11.6-14.4)
[2025-05-14 09:45] LABS: BUN CREA RATIO 34.0 (7.0-25.0); CREATININE SERUM 0.44 mg/dL (0.55-1.02); GFR 149.01; GLUCOSE FASTING 103.0 mg/dL (65-100); OSMOLALITY SERUM 280.0 MOSM/KG (275-295)
[2025-05-14 16:00] VITALS: BP 123/80; O2SAT 97
[2025-05-14] MEDS ORDERED: MIDAZOLAM HCL 2 MG/2 ML VIAL IV PUSH ONE (16:30)
[2025-05-14] MEDS ORDERED: fentaNYL CITRATE 50 MCG/ML AMPUL IV PUSH ONE ×2 (16:30→21:30)
[2025-05-15 01:36] VITALS: BP 127/78; O2SAT 100
[2025-05-15 08:00] VITALS: BP 150/91; O2SAT 99
[2025-05-15 16:00] VITALS: BP 148/80; O2SAT 99
[2025-05-15] MEDS ORDERED: GABAPENTIN 100 MG CAPSULE PO SCH (21:00)
[2025-05-16 01:28] VITALS: BP 135/79; O2SAT 100
[2025-05-16 08:00] VITALS: BP 151/92; O2SAT 100
[2025-05-16 16:00] VITALS: BP 149/90; O2SAT 100
[2025-05-17 01:12] VITALS: BP 167/106; O2SAT 100
[2025-05-17 08:14] LABS: BASO % 0.3 % (0.1-1.2); EOS # 0.40 (0.04-0.54); EOS % 4.3 % (0.7-7.0); LYMPH # 1.03 (1.18-3.74); LYMPH % 11.0 % (19.3-53.1); MEAN PLATELET VOLUME 10.40 fl (9.4-12.4); MONO # 1.23 (0.24-0.82); NEUT # 6.61 (1.56-6.13); NEUT % 70.3 % (34.0-71.1); RED CELL DISTRIBUTION WIDTH 17.5 % (11.6-14.4)
[2025-05-17 08:30] LABS: MONO % 13.1 % (4.7-12.5)
[2025-05-17 08:49] LABS: INR 1.08
[2025-05-17 09:27] LABS: GLUCOSE FASTING 164.0 mg/dL (65-100)
[2025-05-17 09:28] LABS: BUN CREA RATIO 33.0 (7.0-25.0); CREATININE SERUM 0.33 mg/dL (0.55-1.02); GFR 207.68; OSMOLALITY SERUM 282.0 MOSM/KG (275-295)
[2025-05-17 09:29] LABS: BILIRUBIN TOTAL 0.65 mg/dL (0.3-1.2); BILIRUBIN,CONJUGATED 0.35 mg/dL (0.0-0.2); CHOL HDL RATIO 5.3 (0-5.0); GLOBULINA 4.5 G/DL (2.4-3.5); HDL 22.0 mg/dl (40-60); LDL 52.0 mg/dl (0-130); VLDL 42.0 (0-39)
[2025-05-17 09:30] LABS: ALT/SGPT 11.0 U/L (12-78); AST/SGOT 22.0 U/L (15-37)
[2025-05-17 09:49] VITALS: BP 137/87; O2SAT 98
[2025-05-17] MEDS ORDERED: MAGNESIUM SULFATE IN WATER 50 ML IV NR (11:15)
[2025-05-17] MEDS ORDERED: POTASSIUM CHLORIDE 20MEQ/100ML H2O PB IV NR (13:00)
[2025-05-17 16:00] VITALS: BP 146/92; O2SAT 99
[2025-05-18 02:08] VITALS: BP 134/78; O2SAT 100
[2025-05-18 08:00] VITALS: BP 145/93; O2SAT 98
[2025-05-18 17:08] VITALS: BP 165/89; O2SAT 98
[2025-05-19 01:01] VITALS: BP 129/73; O2SAT 100
[2025-05-19 10:39] VITALS: BP 147/86; O2SAT 99
[2025-05-19] MEDS ORDERED: METHYLPREDNISOLONE SOD SUCC 40 MG VIAL IV NR (11:00)
[2025-05-19] MEDS ORDERED: DIPHENHYDRAMINE HCL 50 MG/ML VIAL 1ML IV NR (11:00)
[2025-05-19] MEDS ORDERED: DIATRIZOATE MEGLUMINE, SODIUM 30 ML BOTTLE PO NR (11:30)
[2025-05-19 18:32] VITALS: BP 145/85; O2SAT 100
[2025-05-20 02:26] VITALS: BP 138/73; O2SAT 98
[2025-05-20 08:00] VITALS: BP 150/90; O2SAT 98
[2025-05-20 08:46] LABS: BASO % 0.2 % (0.1-1.2); EOS # 0.01 (0.04-0.54); EOS % 0.1 % (0.7-7.0); LYMPH # 1.15 (1.18-3.74); LYMPH % 12.0 % (19.3-53.1); MEAN PLATELET VOLUME 10.60 fl (9.4-12.4); MONO # 1.23 (0.24-0.82); NEUT # 7.03 (1.56-6.13); NEUT % 73.5 % (34.0-71.1); RED CELL DISTRIBUTION WIDTH 17.6 % (11.6-14.4)
[2025-05-20 08:50] LABS: MONO % 12.9 % (4.7-12.5)
[2025-05-20 09:29] LABS: ALT/SGPT 16.0 U/L (12-78); AST/SGOT 29.0 U/L (15-37); BILIRUBIN TOTAL 0.77 mg/dL (0.3-1.2); BUN CREA RATIO 25.0 (7.0-25.0); CREATININE SERUM 0.52 mg/dL (0.55-1.02); GFR 122.88; GLOBULINA 5.7 G/DL (2.4-3.5); GLUCOSE FASTING 144.0 mg/dL (65-100); OSMOLALITY SERUM 278.0 MOSM/KG (275-295)
[2025-05-20 16:00] VITALS: BP 141/88; O2SAT 94
[2025-05-21 01:07] VITALS: BP 158/104; O2SAT 98
[2025-05-21 01:55] VITALS: BP 130/74; O2SAT 97
[2025-05-21] MEDS ORDERED: DIPHENHYDRAMINE HCL 50 MG/ML VIAL 1ML IV STA (01:58)
[2025-05-21 08:00] VITALS: BP 138/92; O2SAT 99
[2025-05-21 17:15] VITALS: BP 147/92; O2SAT 99
[2025-05-22 01:41] VITALS: BP 143/81; O2SAT 96
[2025-05-22 08:00] VITALS: BP 150/99; O2SAT 97
[2025-05-22 16:00] VITALS: BP 144/85; O2SAT 98
[2025-05-23 01:37] VITALS: BP 132/83; O2SAT 99
[2025-05-23 08:00] VITALS: BP 135/84; O2SAT 99
[2025-05-23 16:00] VITALS: BP 150/92; O2SAT 99
[2025-05-24 01:05] VITALS: BP 133/87; O2SAT 96
[2025-05-24 07:25] LABS: ALT/SGPT 12.0 U/L (12-78); AST/SGOT 23.0 U/L (15-37); BILIRUBIN TOTAL 0.85 mg/dL (0.3-1.2); BUN CREA RATIO 19.0 (7.0-25.0); CREATININE SERUM 0.52 mg/dL (0.55-1.02); GFR 122.88; GLOBULINA 4.5 G/DL (2.4-3.5); GLUCOSE FASTING 123.0 mg/dL (65-100); OSMOLALITY SERUM 278.0 MOSM/KG (275-295)
[2025-05-24 07:46] LABS: BASO % 0.4 % (0.1-1.2); EOS # 1.02 (0.04-0.54); EOS % 8.0 % (0.7-7.0); LYMPH # 1.68 (1.18-3.74); LYMPH % 13.1 % (19.3-53.1); MEAN PLATELET VOLUME 10.00 fl (9.4-12.4); MONO # 1.61 (0.24-0.82); NEUT # 8.21 (1.56-6.13); NEUT % 64.1 % (34.0-71.1); RED CELL DISTRIBUTION WIDTH 17.6 % (11.6-14.4)
[2025-05-24 08:14] VITALS: BP 149/93; O2SAT 96
[2025-05-24 09:14] LABS: MONO % 12.6 % (4.7-12.5)
[2025-05-24 09:41] LABS: ERYTHROCYTE SEDIMENTATION RATE 73 mm/hr (0-30)
[2025-05-24 16:30] VITALS: BP 124/84; O2SAT 99
[2025-05-25 00:45] VITALS: BP 149/88; O2SAT 98
[2025-05-25] MEDS ORDERED: DIPHENHYDRAMINE HCL 50 MG/ML VIAL 1ML IV NR (08:00)
[2025-05-25] MEDS ORDERED: METHYLPREDNISOLONE SOD SUCC 40 MG VIAL IV NR (08:00)
[2025-05-25] MEDS ORDERED: DIATRIZOATE MEGLUMINE, SODIUM 30 ML BOTTLE PO NR (08:00)
[2025-05-25 08:48] VITALS: BP 129/84; O2SAT 100
[2025-05-25 09:35] LABS: BASO % 0.4 % (0.1-1.2); EOS # 0.85 (0.04-0.54); EOS % 5.8 % (0.7-7.0); LYMPH # 1.29 (1.18-3.74); LYMPH % 8.9 % (19.3-53.1); MEAN PLATELET VOLUME 9.70 fl (9.4-12.4); MONO # 1.56 (0.24-0.82); MONO % 10.7 % (4.7-12.5); NEUT # 10.60 (1.56-6.13); NEUT % 73.0 % (34.0-71.1); RED CELL DISTRIBUTION WIDTH 17.7 % (11.6-14.4)
[2025-05-25 17:06] VITALS: BP 135/84; O2SAT 97
[2025-05-26 01:18] VITALS: BP 138/87; O2SAT 99
[2025-05-26 08:00] VITALS: BP 124/82; O2SAT 100
[2025-05-26 18:10] VITALS: BP 155/103; O2SAT 99
[2025-05-27 02:30] VITALS: BP 156/90; O2SAT 99
[2025-05-27 08:00] VITALS: BP 145/79; O2SAT 98
[2025-05-27] MEDS ORDERED: SODIUM CL 0.9% 250 ML IV.SOLN ONE (08:28)
[2025-05-27 12:36] LABS: BASO % 0.4 % (0.1-1.2); EOS # 0.27 (0.04-0.54); EOS % 2.0 % (0.7-7.0); LYMPH # 1.31 (1.18-3.74); LYMPH % 9.9 % (19.3-53.1); MEAN PLATELET VOLUME 9.80 fl (9.4-12.4); MONO # 1.34 (0.24-0.82); MONO % 10.1 % (4.7-12.5); NEUT # 10.20 (1.56-6.13); NEUT % 76.8 % (34.0-71.1); RED CELL DISTRIBUTION WIDTH 17.3 % (11.6-14.4)
[2025-05-27 13:32] LABS: BUN CREA RATIO 24.0 (7.0-25.0); CREATININE SERUM 0.58 mg/dL (0.55-1.02); GFR 108.33; GLUCOSE FASTING 134.0 mg/dL (65-100); OSMOLALITY SERUM 276.0 MOSM/KG (275-295)
[2025-05-27 16:00] VITALS: BP 154/97; O2SAT 97
[2025-05-27] MEDS ORDERED: ANIDULAFUNGIN 100 MG VIAL IV SCH (17:00)
[2025-05-28 02:09] VITALS: BP 154/97; O2SAT 98
[2025-05-28 08:00] VITALS: BP 134/90; O2SAT 98
[2025-05-28] MEDS ORDERED: IRBESARTAN 75 MG TABLET PO SCH (10:01)
[2025-05-28] MEDS ORDERED: IRBESARTAN 75 MG TABLET PO NR (12:00)
[2025-05-28 17:58] VITALS: BP 118/77; O2SAT 98
[2025-05-29 01:27] VITALS: BP 140/79; O2SAT 97
[2025-05-29 08:00] VITALS: BP 124/92; O2SAT 97
== END 2025-05-29 16:42 | disposition home or self-care (01) | DRG 871 ==
LOC: ER 11:45 → SEC-K 14:43 → SURH 14:43 → SEC-K 22:11 → SURH 04-29 05:37
PROVIDERS: General Practice; Internal Medicine; Internal Medicine Geriatric Medicine; ADMIT Colon & Rectal Surgery; ATTEND Colon & Rectal Surgery
PROC: 0H97XZZ Drainage of Abdomen Skin, External Approach (ICD-10-PCS; principal; 2025-04-30)
PROC: B24BYZZ Ultrasonography of Heart with Aorta using Other Contrast (ICD-10-PCS; 2025-04-30)
PROC: 02HV33Z Insertion of Infusion Device into Superior Vena Cava, Percutaneous Approach (ICD-10-PCS; 2025-05-01)
PROC: 30243N1 Transfusion of Nonautologous Red Blood Cells into Central Vein, Percutaneous Approach (ICD-10-PCS; 2025-05-08)
PROC: BW21YZZ Computerized Tomography (CT Scan) of Abdomen and Pelvis using Other Contrast (ICD-10-PCS; 2025-05-12)
PROC: 0H97XZZ Drainage of Abdomen Skin, External Approach (ICD-10-PCS; 2025-05-14)
PROC: BW21YZZ Computerized Tomography (CT Scan) of Abdomen and Pelvis using Other Contrast (ICD-10-PCS; 2025-05-19)
PROC: BW21YZZ Computerized Tomography (CT Scan) of Abdomen and Pelvis using Other Contrast (ICD-10-PCS; 2025-05-25)
DX: A41.9 Sepsis, unspecified organism (principal); K65.1 Peritoneal abscess; N17.9 Acute kidney failure, unspecified; E87.1 Hypo-osmolality and hyponatremia; J98.11 Atelectasis; J90 Pleural effusion, not elsewhere classified; Z85.038 Personal history of other malignant neoplasm of large intestine; B96.20 Unspecified Escherichia coli [E. coli] as the cause of diseases classified elsewhere; D72.829 Elevated white blood cell count, unspecified; D64.9 Anemia, unspecified

== ENCOUNTER 2025-06-03 23:11 | Inpatient (IN) | payer OTHER ==
[~2025-06-03] VITALS: Ht 162.6 cm; Wt 49.9 kg
--- NOTE | 2025-06-03 23:15 | NUR ---
PTE ALERTA Y ORIENTADA X3. PTE RECIBIDA EN AMBULANCIA. REFIERE DOLOR ABDOMINAL DE DOS CAGLE.PTE DE DR. VILLEGAS.
[2025-06-03] MEDS ORDERED: ONDANSETRON HCL 4 MG in 0.9 % SODIUM CHLORIDE 50 ML IV ONE (23:45)
[2025-06-03] MEDS ORDERED: MORPHINE SULFATE 4 MG/ML CARTRIDGE IV PRN (23:45)
[2025-06-03] MEDS ORDERED: ONDANSETRON HCL 4 MG in 0.9 % SODIUM CHLORIDE 50 ML IV PRN (23:45)
[2025-06-03] MEDS ORDERED: ACETAMINOPHEN 500 MG GEL..CAP PO PRN (23:45)
[2025-06-03] MEDS ORDERED: RINGERS SOLUTION,LACTATED 1,000 ML IV SCH (23:45)
[2025-06-03] MEDS ORDERED: FAMOTIDINE/PF 20 MG in 0.9 % SODIUM CHLORIDE 8 ML IV PUSH SCH (23:56)
[2025-06-04] MEDS ORDERED: PIPERACILLIN/TAZOBACTAM SODIUM 3.375 GM in DEXTROSE 5 % IN WATER 100 ML IV SCH
[2025-06-04] MEDS ORDERED: 0.9 % SODIUM CHLORIDE 1,000 ML IV SCH (00:15)
[2025-06-04] MEDS ORDERED: FAMOTIDINE/PF 20 MG/2 ML VIAL ONE (00:49)
[2025-06-04] MEDS ORDERED: ONDANSETRON HCL 2 MG/ML VIAL ONE (00:49)
[2025-06-04 00:59] LABS: ERYTHROCYTE SEDIMENTATION RATE 126 mm/hr (0-30)
[2025-06-04] MEDS ORDERED: ACETAMINOPHEN 500 MG GEL..CAP PO ONE (01:13)
[2025-06-04 01:20] LABS: COVID-19 AG NEGATIVE (NEGATIVE); INR 1.13
[2025-06-04 01:40] LABS: ALT/SGPT 40.0 U/L (12-78); BILIRUBIN TOTAL 2.78 mg/dL (0.3-1.2); GLOBULINA 3.8 G/DL (2.4-3.5); GLUCOSE FASTING 80.0 mg/dL (65-100); OSMOLALITY SERUM 267.0 MOSM/KG (275-295)
[2025-06-04 01:42] LABS: AST/SGOT 60.0 U/L (15-37); BUN CREA RATIO 38.0 (7.0-25.0); CREATININE SERUM 0.29 mg/dL (0.55-1.02); GFR 241.07
[2025-06-04 01:51] LABS: BASO % 0.1 % (0.1-1.2); EOS # 0.03 (0.04-0.54); EOS % 0.2 % (0.7-7.0); LYMPH # 1.18 (1.18-3.74); LYMPH % 7.9 % (19.3-53.1); MEAN PLATELET VOLUME 10.10 fl (9.4-12.4); MONO # 1.52 (0.24-0.82); MONO % 10.1 % (4.7-12.5); NEUT # 12.19 (1.56-6.13); NEUT % 81.2 % (34.0-71.1); RED CELL DISTRIBUTION WIDTH 16.2 % (11.6-14.4)
[2025-06-04 02:58] VITALS: BP 105/69; O2SAT 96
[2025-06-04 03:36] LABS: URINE APPEARANCE Clear; URINE BILIRRUBIN Small (NEGATIVE); URINE BLOOD Negative; URINE COLOR Dark Yellow; URINE GLUCOSE Negative (NEGATIVE); URINE LEUKOCYTE Trace; URINE NITRATE Negative; URINE PROTEIN 30 (NEGATIVE); URINE UROBILINOGEN 0.2 E.U./dl
[2025-06-04 03:40] LABS: URINE BACTERIA 10.7 uL (0.0-1933); URINE EPITHELIAL CELLS 37.8 uL (0.0-38.8); URINE RBC 20.9 uL (0.0-20.8); URINE WBC 10.6 uL (0.0-23.2)
[2025-06-04 04:38] LABS: URINE CAST 0.73 uL (0.0-1.40); URINE KETONE 40 (NEGATIVE)
[2025-06-04 04:39] LABS: TYPE CELLS SQUAMOUS
[2025-06-04 07:10] LABS: ALT/SGPT 38.0 U/L (12-78); AST/SGOT 54.0 U/L (15-37); BILIRUBIN TOTAL 2.73 mg/dL (0.3-1.2); BILIRUBIN,CONJUGATED 1.68 mg/dL (0.0-0.2)
[2025-06-04 08:19] VITALS: BP 132/83; O2SAT 97
[2025-06-04] MEDS ORDERED: ENOXAPARIN SODIUM 40 MG/0.4 ML SYRINGE SUBCUTANEO SCH (09:00)
[2025-06-04] MEDS ORDERED: DEXTROSE 5 %-0.45 % SOD CHLORD 1,000 ML IV SCH (14:30)
[2025-06-04] MEDS ORDERED: SOD FERRIC GLUC COMPLX/SUCROSE 62.5 MG in 0.9 % SODIUM CHLORIDE 50 ML IV NR (15:30)
[2025-06-04] MEDS ORDERED: Cyanocobalamin/Mecobalamin 1 TAB.SL SL NR (15:30)
[2025-06-04] MEDS ORDERED: AMINO ACIDS/PROTEIN HYDROLYS 30 ML BLIST.PACK PO SCH (17:00)
[2025-06-04 17:41] VITALS: BP 137/78; O2SAT 97
[2025-06-04] MEDS ORDERED: MEROPENEM 500 MG/VIAL VIAL IV SCH (20:00)
[2025-06-05 01:16] VITALS: BP 139/75; O2SAT 97
[2025-06-05] MEDS ORDERED: DEXTROSE 5 % AND 0.9 % NACL 1,000 ML IV SCH (06:45)
[2025-06-05] MEDS ORDERED: ENALAPRILAT DIHYDRATE 1.25 MG/ML VIAL IV PRN (06:45)
[2025-06-05 08:00] VITALS: BP 138/85; O2SAT 97
[2025-06-05 08:04] LABS: BASO % 0.2 % (0.1-1.2); EOS # 0.03 (0.04-0.54); EOS % 0.4 % (0.7-7.0); LYMPH # 0.71 (1.18-3.74); LYMPH % 8.8 % (19.3-53.1); MEAN PLATELET VOLUME 9.80 fl (9.4-12.4); MONO # 0.70 (0.24-0.82); MONO % 8.7 % (4.7-12.5); NEUT # 6.54 (1.56-6.13); NEUT % 81.0 % (34.0-71.1); RED CELL DISTRIBUTION WIDTH 16.1 % (11.6-14.4)
[2025-06-05 08:38] LABS: ALT/SGPT 32.0 U/L (12-78); AST/SGOT 52.0 U/L (15-37); BILIRUBIN TOTAL 1.58 mg/dL (0.3-1.2); BILIRUBIN,CONJUGATED 0.92 mg/dL (0.0-0.2); BUN CREA RATIO 18.0 (7.0-25.0); CREATININE SERUM 0.34 mg/dL (0.55-1.02); GFR 200.65; GLOBULINA 3.9 G/DL (2.4-3.5); GLUCOSE FASTING 71.0 mg/dL (65-100); OSMOLALITY SERUM 272.0 MOSM/KG (275-295)
[2025-06-05] MEDS ORDERED: Cyanocobalamin/Mecobalamin 1 TAB.SL SL SCH (09:00)
[2025-06-05] MEDS ORDERED: SOD FERRIC GLUC COMPLX/SUCROSE 62.5 MG in 0.9 % SODIUM CHLORIDE 50 ML IV SCH (09:00)
[2025-06-05] MEDS ORDERED: MAGNESIUM SULFATE IN WATER 4 GM/100 ML PIGGYBACK IV NR (09:15)
[2025-06-05] MEDS ORDERED: POTASSIUM CHLORIDE IN WATER 100 ML IV NR (09:15)
[2025-06-05] MEDS ORDERED: ANIDULAFUNGIN 100 MG VIAL IV NR (10:15)
[2025-06-05 16:00] VITALS: BP 135/83; O2SAT 97
[2025-06-06 00:05] VITALS: BP 147/87; O2SAT 96
[2025-06-06 08:23] VITALS: BP 118/81; O2SAT 97
[2025-06-06] MEDS ORDERED: ANIDULAFUNGIN 100 MG VIAL IV SCH (09:00)
[2025-06-06 16:00] VITALS: BP 149/79; O2SAT 99
[2025-06-06 23:53] VITALS: BP 148/85; O2SAT 97
[2025-06-07 07:09] LABS: ALT/SGPT 49.0 U/L (12-78); AST/SGOT 116.0 U/L (15-37); BILIRUBIN TOTAL 0.88 mg/dL (0.3-1.2); BUN CREA RATIO 14.0 (7.0-25.0); CREATININE SERUM 0.35 mg/dL (0.55-1.02); GFR 194.05; GLOBULINA 3.9 G/DL (2.4-3.5); GLUCOSE FASTING 115.0 mg/dL (65-100); OSMOLALITY SERUM 279.0 MOSM/KG (275-295)
[2025-06-07 08:22] VITALS: BP 160/91; O2SAT 97
[2025-06-07] MEDS ORDERED: POTASSIUM CHLORIDE 20MEQ/100ML H2O PB IV NR (12:00)
[2025-06-07] MEDS ORDERED: THIAMINE HCL 100 MG/ML 2 ML VIAL IV NR (14:00)
[2025-06-07 16:00] VITALS: BP 140/83; O2SAT 100
[2025-06-08 00:57] VITALS: BP 145/79; O2SAT 100
[2025-06-08 08:56] VITALS: BP 138/77; O2SAT 98
[2025-06-08] MEDS ORDERED: IRBESARTAN 150 MG TABLET PO SCH (09:00)
[2025-06-08] MEDS ORDERED: IRBESARTAN 75 MG TABLET PO SCH (09:00)
[2025-06-08] MEDS ORDERED: THIAMINE HCL 100 MG/ML 2 ML VIAL IV SCH (09:00)
[2025-06-08 14:38] LABS: BASO % 0.3 % (0.1-1.2); EOS # 0.34 (0.04-0.54); EOS % 3.2 % (0.7-7.0); LYMPH # 1.60 (1.18-3.74); LYMPH % 15.1 % (19.3-53.1); MEAN PLATELET VOLUME 9.50 fl (9.4-12.4); MONO # 0.93 (0.24-0.82); MONO % 8.8 % (4.7-12.5); NEUT # 7.51 (1.56-6.13); NEUT % 71.0 % (34.0-71.1); RED CELL DISTRIBUTION WIDTH 16.1 % (11.6-14.4)
[2025-06-08 15:55] LABS: ALT/SGPT 48.0 U/L (12-78); AST/SGOT 98.0 U/L (15-37); BILIRUBIN TOTAL 1.04 mg/dL (0.3-1.2); BILIRUBIN,CONJUGATED 0.52 mg/dL (0.0-0.2); GLUCOSE FASTING 91.0 mg/dL (65-100); OSMOLALITY SERUM 272.0 MOSM/KG (275-295)
[2025-06-08 15:59] LABS: BUN CREA RATIO 17.0 (7.0-25.0); GFR 299.91
[2025-06-08 16:03] VITALS: BP 139/91; O2SAT 100
[2025-06-08 17:04] LABS: CREATININE SERUM 0.24 mg/dL (0.55-1.02)
[2025-06-08] MEDS ORDERED: ORPHENADRINE CITRATE 100 MG TABLET PO SCH (21:00)
[2025-06-09 01:39] VITALS: BP 147/73; O2SAT 98
[2025-06-09 08:28] VITALS: BP 148/85; O2SAT 98
[2025-06-09] MEDS ORDERED: SOD FERRIC GLUC COMPLX/SUCROSE 62.5 MG in 0.9 % SODIUM CHLORIDE 50 ML IV SCH (12:00)
[2025-06-09 16:58] VITALS: BP 141/83; O2SAT 100
[2025-06-10 01:50] VITALS: BP 141/78; O2SAT 98
[2025-06-10 08:00] VITALS: BP 143/79; O2SAT 100
[2025-06-10] MEDS ORDERED: LIDOCAINE 5% 1 PATCH ADH. TOP SCH (12:00)
[2025-06-10] MEDS ORDERED: VANCOMYCIN HCL 1,000 MG VIAL ONE ×2 (15:34→22:16)
[2025-06-10] MEDS ORDERED: VANCOMYCIN HCL 1,000 MG VIAL IV SCH (17:00)
[2025-06-10 19:03] VITALS: BP 153/85; O2SAT 99
[2025-06-11] VITALS: BP 121/71; O2SAT 98
[2025-06-11 06:18] LABS: BASO % 0.2 % (0.1-1.2); EOS # 0.32 (0.04-0.54); EOS % 3.9 % (0.7-7.0); LYMPH # 1.14 (1.18-3.74); LYMPH % 14.1 % (19.3-53.1); MEAN PLATELET VOLUME 9.60 fl (9.4-12.4); MONO # 0.95 (0.24-0.82); MONO % 11.7 % (4.7-12.5); NEUT # 5.60 (1.56-6.13); NEUT % 69.1 % (34.0-71.1); RED CELL DISTRIBUTION WIDTH 16.1 % (11.6-14.4)
[2025-06-11 06:43] LABS: ERYTHROCYTE SEDIMENTATION RATE 60 mm/hr (0-30)
[2025-06-11 07:11] LABS: ALT/SGPT 40.0 U/L (12-78); AST/SGOT 59.0 U/L (15-37); BILIRUBIN TOTAL 0.65 mg/dL (0.3-1.2); GLOBULINA 4.1 G/DL (2.4-3.5); GLUCOSE FASTING 103.0 mg/dL (65-100); OSMOLALITY SERUM 279.0 MOSM/KG (275-295)
[2025-06-11 07:31] LABS: BUN CREA RATIO 24.0 (7.0-25.0); GFR 241.07
[2025-06-11 07:32] LABS: CREATININE SERUM 0.29 mg/dL (0.55-1.02)
[2025-06-11 08:00] VITALS: BP 120/70; O2SAT 95
[2025-06-11] MEDS ORDERED: POTASSIUM CHLORIDE 20MEQ/100ML H2O PB IV NR (08:15)
[2025-06-11] MEDS ORDERED: MAGNESIUM SULFATE IN WATER 50 ML IV NR (08:30)
[2025-06-11 16:13] VITALS: BP 155/97; O2SAT 100
[2025-06-12 00:30] VITALS: BP 142/74; O2SAT 98
[2025-06-12 08:00] VITALS: BP 132/78; O2SAT 98
[2025-06-12] MEDS ORDERED: LIDOCAINE 5% 1 PATCH ADH. TOP SCH (12:00)
[2025-06-12 17:51] VITALS: BP 131/80; O2SAT 100
[2025-06-13 01:04] VITALS: BP 136/81; O2SAT 98
[2025-06-13 07:43] VITALS: BP 154/81; O2SAT 99
[2025-06-13 17:52] VITALS: BP 160/90; O2SAT 97
[2025-06-14 00:43] VITALS: BP 137/75; O2SAT 99
[2025-06-14 06:49] LABS: BASO % 0.2 % (0.1-1.2); EOS # 0.31 (0.04-0.54); EOS % 3.8 % (0.7-7.0); LYMPH # 1.36 (1.18-3.74); LYMPH % 16.5 % (19.3-53.1); MEAN PLATELET VOLUME 9.70 fl (9.4-12.4); MONO # 1.11 (0.24-0.82); NEUT # 5.40 (1.56-6.13); NEUT % 65.5 % (34.0-71.1); RED CELL DISTRIBUTION WIDTH 15.9 % (11.6-14.4)
[2025-06-14 06:50] LABS: MONO % 13.5 % (4.7-12.5)
[2025-06-14 06:54] LABS: ERYTHROCYTE SEDIMENTATION RATE 80 mm/hr (0-30)
[2025-06-14 07:02] LABS: ALT/SGPT 31.0 U/L (12-78); AST/SGOT 42.0 U/L (15-37); BILIRUBIN TOTAL 0.6 mg/dL (0.3-1.2); GLOBULINA 3.9 G/DL (2.4-3.5); GLUCOSE FASTING 96.0 mg/dL (65-100); OSMOLALITY SERUM 285.0 MOSM/KG (275-295)
[2025-06-14 07:06] LABS: BUN CREA RATIO 38.0 (7.0-25.0); CREATININE SERUM 0.24 mg/dL (0.55-1.02); GFR 299.91
[2025-06-14 08:00] VITALS: BP 136/81; O2SAT 98
[2025-06-14] MEDS ORDERED: POTASSIUM CHLORIDE 20MEQ/100ML H2O PB IV NR (08:30)
[2025-06-14] MEDS ORDERED: LIDOCAINE 1 EACH ADH..PATCH TOP SCH (12:00)
[2025-06-14 17:23] VITALS: BP 150/89; O2SAT 99
[2025-06-15 02:03] VITALS: BP 147/92; O2SAT 98
[2025-06-15 08:00] VITALS: BP 129/90; O2SAT 99
[2025-06-15 17:19] VITALS: BP 131/73; O2SAT 98
[2025-06-16 01:00] VITALS: BP 143/79; O2SAT 98
[2025-06-16 08:00] VITALS: BP 160/90; O2SAT 99
[2025-06-16 16:00] VITALS: BP 155/86; O2SAT 96
[2025-06-17 02:25] VITALS: BP 137/86; O2SAT 98
[2025-06-17 08:25] VITALS: BP 161/88; O2SAT 97
[2025-06-17] MEDS ORDERED: FERREX 150 FOR1 EAC1 PO (13:24)
[2025-06-17] MEDS ORDERED: LIDOCAINE PAIN1 EACH TOP (13:24)
[2025-06-17] MEDS ORDERED: VITAMIN B-150 MG PO (13:24)
[2025-06-17] MEDS ORDERED: AVAPRO150 MG PO (13:24)
[2025-06-17] MEDS ORDERED: PROTEINEX-18 LI30 ML PO (13:24)
[2025-06-17] MEDS ORDERED: NORVASC2.5 MG PO (13:24)
[2025-06-17] MEDS ORDERED: ABANEU-SL TABL1 EACH SL (13:24)
[2025-06-17 16:26] VITALS: BP 140/80; O2SAT 99
== END 2025-06-17 16:31 | disposition home or self-care (01) | DRG 871 ==
LOC: ER 23:11 → SURG 23:59 → SURH 23:59
PROVIDERS: General Practice; Internal Medicine; Internal Medicine Geriatric Medicine; Internal Medicine Infectious Disease; ADMIT Colon & Rectal Surgery; ATTEND Colon & Rectal Surgery
PROC: BW21ZZZ Computerized Tomography (CT Scan) of Abdomen and Pelvis (ICD-10-PCS; principal; 2025-06-03)
PROC: BF37ZZZ Magnetic Resonance Imaging (MRI) of Pancreas (ICD-10-PCS; 2025-06-05)
PROC: B246ZZZ Ultrasonography of Right and Left Heart (ICD-10-PCS; 2025-06-07)
PROC: 02HV33Z Insertion of Infusion Device into Superior Vena Cava, Percutaneous Approach (ICD-10-PCS; 2025-06-11)
DX: A41.9 Sepsis, unspecified organism (principal); K85.90 Acute pancreatitis without necrosis or infection, unspecified; C18.0 Malignant neoplasm of cecum; C78.7 Secondary malignant neoplasm of liver and intrahepatic bile duct; E87.1 Hypo-osmolality and hyponatremia; R65.10 Systemic inflammatory response syndrome (SIRS) of non-infectious origin without acute organ dysfunction; K80.70 Calculus of gallbladder and bile duct without cholecystitis without obstruction; E78.49 Other hyperlipidemia; E86.0 Dehydration

== ENCOUNTER 2025-08-02 10:34 | Emergency (ER) | payer OTHER ==
[~2025-08-02] VITALS: Ht 157.5 cm; Wt 49.9 kg
[~2025-08-02 10:34] MED LIST changes: +ABANEU-SL TABL1 EACH SL; +AVAPRO150 MG PO; +FERREX 150 FOR1 EAC1 PO; +LIDOCAINE PAIN1 EACH TOP; +NORVASC2.5 MG PO; +PROTEINEX-18 LI30 ML PO; +VITAMIN B-150 MG PO
[2025-08-02] MEDS ORDERED: 0.9 % SODIUM CHLORIDE 1,000 ML IV ONE (14:00)
[2025-08-02] MEDS ORDERED: HYOSCYAMINE SULFATE 0.125 MG TAB.SUBL SL ONE (14:00)
[2025-08-02] MEDS ORDERED: PANTOPRAZOLE SODIUM 40 MG/VIAL VIAL IV PUSH ONE (14:00)
[2025-08-02] MEDS ORDERED: HYOSCYAMINE SULFATE 0.125 MG TAB.SUBL ONE (14:03)
[2025-08-02 14:36] LABS: BASO % 0.5 % (0.1-1.2); EOS # 0.19 (0.04-0.54); EOS % 3.1 % (0.7-7.0); LYMPH # 1.72 (1.18-3.74); LYMPH % 28.4 % (19.3-53.1); MEAN PLATELET VOLUME 9.30 fl (9.4-12.4); MONO # 0.78 (0.24-0.82); NEUT # 3.32 (1.56-6.13); NEUT % 54.9 % (34.0-71.1); RED CELL DISTRIBUTION WIDTH 13.5 % (11.6-14.4)
[2025-08-02 14:40] LABS: MONO % 12.9 % (4.7-12.5)
[2025-08-02 15:24] LABS: ALT/SGPT 25.0 U/L (12-78); AST/SGOT 25.0 U/L (15-37); BILIRUBIN TOTAL 1.23 mg/dL (0.3-1.2); BUN CREA RATIO 16.0 (7.0-25.0); CREATININE SERUM 0.61 mg/dL (0.55-1.02); GFR 102.21; GLOBULINA 6.2 G/DL (2.4-3.5); GLUCOSE FASTING 92.0 mg/dL (65-100); OSMOLALITY SERUM 274.0 MOSM/KG (275-295)
== END 2025-08-02 18:51 | disposition home or self-care (01) ==
LOC: ER 10:35
PROVIDERS: General Practice
DX: K52.89 Other specified noninfective gastroenteritis and colitis (principal); Z98.890 Other specified postprocedural states